=== PATIENT | female | born 1980 | race Caucasian/White ===

== ENCOUNTER 2018-02-27 21:45 | Inpatient (IN) | payer OTHER ==
[2018-02-27 23:18] VITALS: BMI 25.4
[2018-02-27] MEDS ORDERED: Lactated Ringer's 1,000 ML IV ONE (23:18)
[2018-02-27] MEDS ORDERED: Lactated Ringer's 1,000 ML IV SCH (23:30)
[2018-02-27 23:36] LABS: BASO % 0.4 % (0.0-2.0); EOS # 0.1 K/uL (0.0-0.7); EOS % 0.8 % (0.0-4.0); LYMPH # 2.1 K/uL (1.0-4.3); LYMPH % 19.2 % (20.0-40.0); MEAN CELL VOLUME 96.3 fl (81.0-99.0); MEAN CORPUSCULAR HGB CONC 33.2 g/dL (33.0-37.0); MEAN PLATELET VOLUME 9.1 fl (7.2-11.7); MONO % 9.1 % (0.0-10.0); NEUT # 7.8 K/uL (1.8-7.0); NEUT % 70.5 % (50.0-75.0); RBC 3.76 Mil/uL (3.80-5.20); RED CELL DISTRIBUTION WIDTH 14.9 % (11.5-14.5)
--- NOTE | 2018-02-28 08:27 | OBADHP ---
Datetime: 02/27/2018 23:17 Admit Comment, IP Provider: HPI: 37 y/o F with PMHx of Hypothyroidism and seizures disorder, with EGA 40.6 weeks, TWAN 02/21/18, who presents to the [facility] for IOL instructed by her Care Cristiana houser for Oligohydramnios RACHELLE-2, also the patient c/o intermittent mild cramping pelvic and back pa in 07/24 in intensity and irregular, patient states she was seen today by her doctor and examined and after that she had vaginal bleeding compared to her menses and she had to change her pad twice but it was not soaked wet. Patient reports frequent FM, and she reports sexual activity today. She denies L OF, dizziness, [place], blurry vision, chest pain, SOB, N/V, or abdominal pain. OBGYN: Menarche at 12 y/o, x1 IAB approximately 15 years ago. Care Provider: Dr Heath Jackson. PMH: Hypothyroidism, Seizure disorder MEDS:Tegretol, levothyroxine FMHx: Mother RA SocialHx: Denies Tobacco/ETOH/Rec drug use. SurgHx: Hysteroscopy resection ETOP Allergies: [place] causes Rash LABS: HIV negative first trimester, RPR negative first trimester, GBS done 01/28/18 negative, Rubel la +/[place], GC/CL nonreactive, ABORh A+, Ab negative. PPD: Negative TDaP: Patient declined. Assessment/Plan This is a 37 y/o , with term EGA 40.6 weeks, with PMHx significant for Hypothyroi dism and seizure disorder, who presents for IOL for Oligohydramnios, now with 1 cm cervical dilation, 90% effacement, station -3. -Admit to L_D -CBC w/diff, Type and screen -Maternal VS and FHR trace monitoring -Initiate IOL with Cytotec 50 mcg PO Q3h Comments, ACOG Physical Exam: GEN: NAD HEENT: Normocephalic, EOMI RESP: CTA b/l CV: RRR, no murmurs noted ABD: Gravid. IP Hx Assessment: The History has been Reviewed and is Current Vital Signs Provider: Reviewed; Within Normal Limits IP Chief Complaint: Scheduled induction of labor Dilatation, Provider: 1 Effacement, Provider: 90 Station, Provider: -3 (Annotations: Data stored by CPN on behalf of user) IP Adm Impression: Term, intrauterine IP Admit Plan: Admit to unit; Initiate labor induction protocol
[2018-02-28] MEDS ORDERED: Lactated Ringer's 1,000 ML IV SCH ×2 (08:45)
[2018-02-28] MEDS ORDERED: Lidocaine 1% 20 MG/2 ML PF AMP ONE (10:17)
[2018-02-28] MEDS ORDERED: Oxytocin 30 units/LR 500ML 30 UNITS/500 ML BAG IV ONE (10:20)
--- NOTE | 2018-02-28 10:26 | OBPN ---
Datetime: 02/28/2018 10:15 IP Progress Impression: Normal progression of labor; Reassuring heart rate IP Informed Consent Obtain: Vaginal Delivery IP Progress Plan: Continue present management; Anticipate Vaginal Delivery Contraction Comments Provider: 2-3m FHR - Baseline A Provider: 140 Presentation-Admit: Vertex IP Progress Note Comment: OB Hospitalist on-call. Sign out re'd earlier...pt seen at 8:30am - asked not to check because she was waiting for her dewaterer operator. Options for pain management discussed. She rec' d Cytotec for IOL Notified earlier that she was 9cm and dewaterer operator arrived. She feel pressure SVE 10cm A: second stage of labor PLAN: anticipate NICHD Accel Fetus A IP Provider: [id number] FHR Category Provider Fetus A: Category II NICHD Variability Prov Fetus A: Moderate 6-25bpm Dilatation, Provider: 10 Effacement, Provider: 100 Station, Provider: 1 NICHD Decel Fetus A IP Provider: Early Datetime: 02/27/2018 23:17 Vital Signs Provider: Reviewed; Within Normal Limits
[2018-02-28] MEDS ORDERED: Benzocaine/Menthol SPRAY TOP PRN (11:17)
[2018-02-28] MEDS ORDERED: Oxycodone/Acetaminophen 5/325 mg Tab PO PRN ×2 (11:17)
[2018-02-28 13:31] LABS: HEMOGLOBIN 10.7 g/dL (12.0-16.0); MEAN CELL VOLUME 96.6 fl (81.0-99.0); MEAN CORPUSCULAR HEMOGLOBIN 32.2 pg (27.0-31.0); MEAN CORPUSCULAR HGB CONC 33.4 g/dL (33.0-37.0); RBC 3.33 Mil/uL (3.80-5.20); WHITE BLOOD COUNT 26.3 K/uL (4.8-10.8)
[2018-02-28] MEDS ORDERED: Ammonia 2% Inhalant ONE (14:32)
[2018-02-28 19:09] LABS: HEMOGLOBIN 8.7 g/dL (12.0-16.0); MEAN CELL VOLUME 96.4 fl (81.0-99.0); MEAN CORPUSCULAR HGB CONC 33.2 g/dL (33.0-37.0); RBC 2.71 Mil/uL (3.80-5.20); RED CELL DISTRIBUTION WIDTH 15.3 % (11.5-14.5); WHITE BLOOD COUNT 23.2 K/uL (4.8-10.8)
[2018-03-01] MEDS ORDERED: Oxycodone/Acetaminophen 5/325 mg Tab PO PRN (02:08)
[2018-03-01] MEDS: Levothyroxine 50 MCG TAB PO SCH (06:28)
[2018-03-01] MEDS ORDERED: Levothyroxine 50 MCG TAB PO SCH ×3 (06:30)
[2018-03-01 07:59] LABS: HEMOGLOBIN 6.6 g/dL (12.0-16.0); MEAN CELL VOLUME 97.1 fl (81.0-99.0); MEAN CORPUSCULAR HEMOGLOBIN 32.5 pg (27.0-31.0); MEAN CORPUSCULAR HGB CONC 33.5 g/dL (33.0-37.0); RBC 2.02 Mil/uL (3.80-5.20); RED CELL DISTRIBUTION WIDTH 15.1 % (11.5-14.5)
[2018-03-01] MEDS: Benzocaine/Menthol SPRAY TOP PRN (09:00)
[2018-03-01] MEDS ORDERED: Prenatal Multivit/Folic Acid/Iron Tab PO SCH (09:00)
[2018-03-01] MEDS ORDERED: Multivitamin With Minerals Tab PO SCH (09:00)
[2018-03-01] MEDS: Multivitamin With Minerals Tab PO SCH (09:00)
[2018-03-01] MEDS: Prenatal Multivit/Folic Acid/Iron Tab PO SCH (09:01)
--- NOTE | 2018-03-01 11:05 | OBPPN ---
Datetime: 03/01/2018 08:30 PP Pain Prov: Within normal limits PP Nausea Prov: Denies PP Flatus Prov: Yes PP BM Prov: No PP Breasts Prov: Normal PP Heart Prov: Normal PP Lungs Prov: Normal PP Abdomen/Uterus Prov: Normal PP Lochia Prov: Normal PP Vulva/Perineum Prov: Normal PP CVA Tenderness Prov: Normal PP Extremities Prov: Normal PP Progress Prov: Normal PP Impression Other Prov: Anemia - severe PP Progress Note Prov: She is eating breakfast. Feeling somewhat better than yesterday. No VB in NAD Abd soft uterus firm Perinuem: packing removed - sutures outside intact - no VB noted H/H 12/31 - PLT 100 A; S/P Hemmor[place]age Severe anemia Hx seizure disorder - wants Tegertol level PLAN: discussion with her andher about condition, PPH, and transfusoin with its risks/comp lications...Informed consent obtained IP PP Procedures: Transfusion Vital Signs Provider PP: Reviewed; Within Normal Limits Datetime: 02/28/2018 18:33 Vital Signs Provider Details PP: P 111 BP 81/54 P stadning 129 earlier
[2018-03-02] MEDS: Levothyroxine 50 MCG TAB PO SCH (06:28)
[2018-03-02] MEDS: Benzocaine/Menthol SPRAY TOP PRN (06:32)
[2018-03-02 07:09] LABS: BASO % 0.2 % (0.0-2.0); EOS # 0.1 K/uL (0.0-0.7); EOS % 0.8 % (0.0-4.0); HEMOGLOBIN 8.7 g/dL (12.0-16.0); LYMPH # 2.6 K/uL (1.0-4.3); LYMPH % 16.5 % (20.0-40.0); MEAN CELL VOLUME 93.3 fl (81.0-99.0); MEAN CORPUSCULAR HEMOGLOBIN 32.4 pg (27.0-31.0); MEAN CORPUSCULAR HGB CONC 34.8 g/dL (33.0-37.0); MEAN PLATELET VOLUME 9.7 fl (7.2-11.7); MONO # 1.5 K/uL (0.0-0.8); MONO % 9.2 % (0.0-10.0); NEUT # 11.7 K/uL (1.8-7.0); NEUT % 73.3 % (50.0-75.0); NRBC % 0.1 % (0.0-0.0); RBC 2.69 Mil/uL (3.80-5.20); RED CELL DISTRIBUTION WIDTH 15.1 % (11.5-14.5)
[2018-03-02] MEDS: Prenatal Multivit/Folic Acid/Iron Tab PO SCH (08:20)
[2018-03-02] MEDS: Multivitamin With Minerals Tab PO SCH (08:20)
--- NOTE | 2018-03-02 09:16 | OBPPN ---
Datetime: 03/02/2018 07:41 PP Pain Prov: Within normal limits PP Nausea Prov: Denies PP Abdomen/Uterus Prov: Normal PP Lochia Prov: Normal PP Extremities Prov: Normal PP Progress Prov: Normal PP Impression Prov: Normal progression PP Plan Prov: Discharge PP Progress Note Prov: PPD 2 s/p w/ PPH s/p 2 units PRBCS, doing well Rx motrin and Slow Fe given Discharge home today Vital Signs Provider PP: Reviewed
--- NOTE | 2018-03-02 09:18 | OBDCSUM ---
Datetime: 03/02/2018 09:16 Discharged to, Provider: Home Follow up at, Provider: Dr. Jackson Disch Instr Activity: Normal activity Disch Instr Diet: Regular Discharge Instructions, Provider: Routine instructions given Discharge Diagnosis, Provider: Term Delivered Discharge Time: 03/02/2018 09:16 Follow up in weeks, Provider: 5 weeks Contraception discussed, Prov: No Disch Activity Restrictions: No exercising; No lifting; No sexual activity; Nothing in vagina - Inte rcourse, tampons, douche
[2018-03-02 19:35] VITALS: BP 114/64; PULSE 79; RESP 20; TEMP 98.5; O2SAT 97
== END 2018-03-02 13:00 | disposition home or self-care (01) | DRG 775 ==
LOC: H.EROB2 21:45 → H.L&D 23:19 → H.OB/GYN 03-01 00:45
PROVIDERS: ADMIT Obstetrics & Gynecology; ATTEND Obstetrics & Gynecology
PROC: 4A1HXCZ Monitoring of Products of Conception, Cardiac Rate, External Approach (ICD-10-PCS; 2018-02-27)
PROC: 10E0XZZ Delivery of Products of Conception, External Approach (ICD-10-PCS; principal; 2018-02-28)
PROC: 0KQM0ZZ Repair Perineum Muscle, Open Approach (ICD-10-PCS; 2018-02-28)
DX: O70.0 First degree perineal laceration during delivery (principal); Z37.0 Single live birth; O41.03X0 Oligohydramnios, third trimester, not applicable or unspecified; O99.354 Diseases of the nervous system complicating childbirth; Z3A.41 41 weeks gestation of pregnancy; O99.284 Endocrine, nutritional and metabolic diseases complicating childbirth; E03.9 Hypothyroidism, unspecified; G40.909 Epilepsy, unspecified, not intractable, without status epilepticus; O99.02 Anemia complicating childbirth